=== PATIENT | female | born 1930 | race Hispanic/Latino ===

== ENCOUNTER 2018-10-12 13:11 | Outpatient (CLI) | payer MEDICARE | END 2018-10-12 13:12 | disposition home or self-care (01) | LOC: C.CTH 13:11 ==

== ENCOUNTER 2018-10-26 11:02 | Day surgery (SDC) | payer MEDICARE ==
--- NOTE | 2018-10-26 12:06 | CP.SDSHP ---
Same Day Surgery H & P - History Proposed Procedure: CT guided right lung nodule biopsy Pre-Op Diagnosis: Right lung nodule - Allergies Allergies: Allergies amoxicillin Allergy (Verified 09/18/17 12:14) RASH clarithromycin Allergy (Verified 09/18/17 12:14) RASH codeine Allergy (Verified 09/18/17 12:14) RASH - Physical Exam Mental Status: Alert & Oriented x3 Neuro: WNL Heart: WNL - Impression Impression: Pt with CT showed right lower lung nodule. PLan CT guided core biopsy. Informed consent and risk of pnuemothorax requiring a chest tube were discussed with Patient and her son. Informed consent obtained. Pt asked her son sign for her. Pt. Evaluated Today:Candidate for Anesthesia & Procedure: Yes (ASA 3 Malampati 3) - Date & Time Date: 10/26/18 Time: 12:00 Short Stay Discharge - Short Stay Discharge Admitting Diagnosis/Reason for Visit: LUNG NODULES Disposition: HOME/ ROUTINE
[2018-10-26] MEDS ORDERED: Midazolam 2 MG/2 ML VIAL ONE (12:17)
[2018-10-26 12:48] VITALS: BMI 20.2
[2018-10-26] MEDS ORDERED: Absorbable Gelatin Sponge Size 12-7 ONE (12:48)
--- NOTE | 2018-10-26 12:48 | PCM.SURG1 ---
Surgeon's Initial Post Op Note - Surgeon's Notes Surgeon: Ihsan Funes MD Anthropology And Archeology Instructor: NONE Type of Anesthesia: IV Sedation Pre-Operative Diagnosis: Right lung nodule Operative Findings: US showed two small right lung nodules Post-Operative Diagnosis: Right lung nodule Operation Performed: CT guided biopsy of right lung nodule Specimen/Specimens Removed: 20 g core x 2 Estimated Blood Loss: EBL {In ML}: 1 Blood Products Given: N/A Drains Used: No Drains Post-Op Condition: Fair Date of Surgery/Procedure: 10/26/18 Time of Surgery/Procedure: 12:47
--- NOTE | 2018-10-26 13:24 | RAD ---
Date of service: 10/26/2018 HISTORY: Status post right lung nodule biopsy COMPARISON: Comparison made with chest radiograph 06/16/[address] chest 10/12/2018. FINDINGS: LUNGS: Lobular masslike density in the right lower lobe less well seen on this study as compared to high-resolution CT chest.. Previously noted on rounded 1.4 mm nodular-masslike density in the right posterior sulcus is not appreciated on this study. Chronic biapical pleural thickening.. There are also scattered areas of chronic scarring/atelectasis and probably some minor bronchiectasis. PLEURA: . No evidence of pneumothorax. CARDIOVASCULAR: Mild moderate aortic atherosclerotic calcification present. Heart remains enlarged. OSSEOUS STRUCTURES: No significant abnormalities. VISUALIZED UPPER ABDOMEN: Normal. OTHER FINDINGS: None. IMPRESSION: Lobular masslike density in the right lower lobe less well seen on this study as compared to high-resolution CT chest.. Previously noted on rounded 1.4 mm nodular-masslike density in the right posterior sulcus is not appreciated on this study chronic biapical pleural thickening.. There are also scattered areas of chronic scarring/atelectasis and probably some minor bronchiectasis. No definitive radiographic evidence of pneumothorax.
--- NOTE | 2018-10-26 13:43 | CT ---
PROCEDURE: Date of procedure: 10/26/2018 Procedure: 1. CT-guided lung mass biopsy, CPT [address] Guidance for biopsy, [address] Radiation: 1417.40 mGy-cm Medications: The patient was sedated by anesthesiologist along with physiologic monitoring. HISTORY: Right lower lobe lung nodule TECHNIQUE: Following informed consent, the Pt's chest was marked. The Pt was placed prone on the CT table and procedure time out was performed. A noncontrast CT scan was performed. Noncontrast CT scan confirmed the presence of a 1cm nodule in right lower lobe and a smaller 6 mm nodule adjacent. A skin localizer was placed on the patient's right back and a repeat CT scan was performed. The skin was marked, prepped, and draped in the usual sterile fashion. After the skin was anesthetized with lidocaine and the patient sedated by the anesthesiologist, a 20 gauge core needle was advanced percutaneously under direct CT guidance into the mass. Upon confirmation of needle position, two 20-gauge core specimens were obtained and sent for routine pathology. The needle was removed and a xeroform dressing was applied. A post biopsy CT scan showed no pneumothorax. IMPRESSION: CT guided core biopsy right lung nodule.
== END 2018-10-26 14:50 | disposition home or self-care (01) ==
LOC: C.SPRAD 11:02
PROVIDERS: ATTEND Radiology Vascular & Interventional Radiology
DX: R91.1 Solitary pulmonary nodule (principal)
CPT/HCPCS: 32405; 71045; 77012; 88305; J2250

== ENCOUNTER 2018-12-24 12:04 | Emergency (ER) | payer MEDICARE | END 2018-12-24 14:47 | disposition home or self-care (01) | LOC: C.ER 12:04 ==